=== PATIENT | female | born 1990 | race Caucasian/White ===

== ENCOUNTER 2022-09-04 23:25 | Inpatient (IN) | payer BC ==
[2022-09-04] MEDS ORDERED: Ampicillin 2 GM in Sodium Chloride 0.9% 100 ML IV ONE (23:35)
[2022-09-04] MEDS ORDERED: Ondansetron 4 MG Tab.DIS PO PRN (23:35)
[2022-09-04] MEDS ORDERED: Oxytocin/Lactated Ringers 10 UNIT/1,000 ML BAG IV SCH ×2 (23:45)
[2022-09-05] MEDS: Lactated Ringers 1,000 ML IV SCH ×3 (00:22→09:09)
[2022-09-05] MEDS: Nalbuphine 10 MG/0.5 ML Syringe IVPUSH PRN ×2 (03:24→06:27)
[2022-09-05] MEDS: Ampicillin 1 GM in Sodium Chloride 0.9% 100 ML IV SCH ×4 (04:21→16:09)
[2022-09-05] MEDS: Oxytocin/Lactated Ringers 10 UNIT/1,000 ML BAG IV SCH ×2 (04:30→16:04)
[2022-09-05] MEDS ORDERED: ePHEDrine 50 MG/ML SDV IVPUSH PRN (08:55)
[2022-09-05] MEDS ORDERED: fentaNYL 100 MCG/2 ML SDV EPIDUR PRN (08:55)
[2022-09-05] MEDS: Bupivacaine/fentaNYL/NS 100 ML Bag EPIDUR PRN ×2 (09:05→16:14)
[2022-09-05] MEDS ORDERED: Ondansetron 4 MG/2 ML SDV IVPUSH PRN ×3 (12:09→23:31)
[2022-09-05] MEDS: Sodium Chloride 0.9% 10 ML Syringe FLUSH SCH ×2 (12:10→23:33)
[2022-09-05] MEDS ORDERED: Ropivacaine 0.2% PF 2 MG/ML 20 ML SDV ONE (14:00)
[2022-09-05] MEDS ORDERED: Methylergonovine 0.2 MG/1 ML Amp ONE (17:12)
[2022-09-05] MEDS ORDERED: Misoprostol 200 MCG Tab ONE (17:16)
[2022-09-05] MEDS ORDERED: Benzocaine/Menthol 20%-0.5% Spray 78 GM Cannister TOP PRN (18:22)
[2022-09-05] MEDS ORDERED: Acetaminophen 325 MG Tab PO PRN (18:22)
[2022-09-05] MEDS ORDERED: Docusate Sodium 100 MG Cap PO PRN (18:22)
[2022-09-05] MEDS ORDERED: Witch Hazel Medicated Pads 40/Jar TOP PRN (18:22)
[2022-09-05] MEDS ORDERED: Ondansetron 4 MG/2 ML SDV ONE (19:37)
[2022-09-05] MEDS ORDERED: Methylergonovine 0.2 MG/ML SDV IM ONE (19:41)
[2022-09-05] MEDS ORDERED: Misoprostol 100 MCG Tab PO ONE (19:42)
[2022-09-05] MEDS ORDERED: Lactated Ringers 1,000 ML IV ONE (20:33)
[2022-09-06] MEDS: Prenatal Multivitamin with Calcium/Folic Acid/Iron Tab PO SCH (08:03)
[2022-09-06] MEDS: Ibuprofen 600 MG Tab PO PRN ×2 (13:18→21:18)
[2022-09-07] MEDS: Prenatal Multivitamin with Calcium/Folic Acid/Iron Tab PO SCH (08:40)
== END 2022-09-07 10:40 | disposition home or self-care (01) | DRG 560 ==
LOC: JD.OBCHECK 23:25 → JD.OB 23:29 → JD.OBCHECK 23:40 → JD.OB 23:40 → OBSVTOIN 09-05 17:35 → JD.OB 09-05 17:41
PROVIDERS: ADMIT Obstetrics & Gynecology; ATTEND Obstetrics & Gynecology
PROC: 3E0R3BZ Introduction of Anesthetic Agent into Spinal Canal, Percutaneous Approach (ICD-10-PCS; principal; 2022-09-05)
PROC: 00HU33Z Insertion of Infusion Device into Spinal Canal, Percutaneous Approach (ICD-10-PCS; principal; 2022-09-05)
PROC: 0HQ9XZZ Repair Perineum Skin, External Approach (ICD-10-PCS; principal; 2022-09-05)
PROC: 10E0XZZ Delivery of Products of Conception, External Approach (ICD-10-PCS; principal; 2022-09-05)
PROC: 3E0P7VZ Introduction of Hormone into Female Reproductive, Via Natural or Artificial Opening (ICD-10-PCS; principal; 2022-09-05)
DX: O42.02 Full-term premature rupture of membranes, onset of labor within 24 hours of rupture (principal); Z37.0 Single live birth; O70.1 Second degree perineal laceration during delivery; O72.1 Other immediate postpartum hemorrhage; O24.414 Gestational diabetes mellitus in pregnancy, insulin controlled; O99.214 Obesity complicating childbirth; E66.01 Morbid (severe) obesity due to excess calories; O99.824 Streptococcus B carrier state complicating childbirth; O99.892 Other specified diseases and conditions complicating childbirth; N87.9 Dysplasia of cervix uteri, unspecified; Z88.8 Allergy status to other drugs, medicaments and biological substances; Z3A.38 38 weeks gestation of pregnancy; Z88.2 Allergy status to sulfonamides; Z88.6 Allergy status to analgesic agent
CPT/HCPCS: 01967; 36415; 51701; 51702; 59025; 59409; 82947; 85025; 85027; 86592; 86850; 86900; 86901; A9270-GY; J0290; J2210; J2300; J2405; J2590; J2795; J3490; J7120

== ENCOUNTER 2023-03-12 13:35 | Emergency (ER) | payer BC, OTHER ==
[2023-03-12 15:09] LABS: BASOPHILS PERCENT AUTO 0.2 % (0.0-1.0); EOSINOPHILS ABSOLUTE AUTO 0.1 K/mm3 (0.0-0.4); EOSINOPHILS PERCENT AUTO 1.6 % (0.0-6.0); HEMATOCRIT 37.2 % (37.0-47.0); HEMOGLOBIN 12.6 gm/dl (12.0-16.0); IMMATURE GRAN ABSOLUTE AUTO 0.02 K/mm3 (0.00-0.05); IMMATURE GRAN PERCENT AUTO 0.2 % (0.0-0.4); LYMPHOCYTES ABSOLUTE AUTO 2.4 K/mm3 (1.0-4.8); LYMPHOCYTES PERCENT AUTO 29.5 % (24.0-44.0); MEAN CORPUSCULAR HEMOGLOBIN 29.8 pg (28.0-32.0); MEAN CORPUSCULAR HGB CONC 33.9 g/dl (32.0-36.0); MEAN CORPUSCULAR VOLUME 87.9 fl (83.0-99.0); MEAN PLATELET VOLUME 9.5 fl (9.4-12.3); MONOCYTES ABSOLUTE AUTO 0.6 K/mm3 (0.0-0.8); MONOCYTES PERCENT AUTO 6.8 % (0.0-8.0); NEUTROPHILS PERCENT AUTO 61.7 % (41.0-71.0); PLATELET COUNT,PLT 283 K/mm3 (150-400); RED BLOOD CELL COUNT 4.23 M/mm3 (4.10-5.30); WHITE BLOOD CELL COUNT,WBC 8.08 K/mm3 (3.9-11.3)
[2023-03-12] MEDS ORDERED: Misoprostol 200 MCG Tab PO SCH ×2 (15:15→21:00)
[2023-03-12 15:56] LABS: A/G RATIO 0.9 (1-2); ALBUMIN 3.8 g/dl (3.4-5.0); ANION GAP 14.6 (5-15); BILIRUBIN TOTAL 0.3 mg/dL (0.2-1.0); CALCIUM 9.3 mg/dL (8.5-10.1); EST CRCL DRUG DOSING (CG) 78.54 mL/min; POTASSIUM,K 3.6 mEq/L (3.5-5.1); PROTEIN TOTAL,TP 8.1 g/dl (6.4-8.2)
== END 2023-03-12 16:58 | disposition home or self-care (01) ==
LOC: JD.ED 13:35
DX: O03.9 Complete or unspecified spontaneous abortion without complication (principal); Z88.6 Allergy status to analgesic agent; Z88.8 Allergy status to other drugs, medicaments and biological substances
CPT/HCPCS: 36415; 80053; 84702; 85025; 86900; 86901; 99284; A9270